=== PATIENT | male | born 1955 | race American Indian/Alaskan Native ===

== ENCOUNTER 2020-12-28 11:59 | Emergency (ER) | payer SELFPAY ==
--- NOTE | 2020-12-28 14:21 | Emergency Department Report ---
ED Male HPI - General Chief complaint: Abdominal Pain Stated complaint: UNABLE TO URINATE Time Seen by Provider: 12/28/20 13:49 Source: patient Mode of arrival: Ambulatory Limitations: No Limitations - History of Present Illness Initial comments: 65-year-old male, history of prostate enlargement, presents to ED with urinary retention. Patient states over the last couple days he been having some difficulty with urination. States he ran out of his Flomax. On yesterday, he was seen at an urgent care and given a prescription for Flomax and Cipro, treating a UTI. Today, patient was unable to urinate at all and came into the ER. He reports suprapubic discomfort. Patient states this is his third episode of having urinary retention which required a Finn catheter placement. Patient reports the other 2 times have occurred while he was out of town. Patient states he does a lot of traveling for work. Patient does report that he has a urologist in the [place] area that he has not seen recently. Patient is unable to remember the name of the urologist. MD Complaint: other -: This morning Radiation: none Severity: severe Quality: aching Consistency: constant Improves with: urination Worsens with: none urinary retention. denies: dysuria, fever, nausea/vomiting - Related Data Allergies Allergy/AdvReac Type Severity Reaction Status Date / Time No Known Allergies Allergy Verified 12/28/20 12:25 ED Review of Systems ROS: Stated complaint: UNABLE TO URINATE Other details as noted in HPI Comment: All other systems reviewed and negative Constitutional: denies: fever Gastrointestinal: abdominal pain. denies: nausea, vomiting Genitourinary: as per HPI ED Past Medical Hx - Past Medical History Previous Medical History?: Yes Additional medical history: BPH - Surgical History Past Surgical History?: Yes Additional Surgical History: prostate porcedure. left leg sx for break - Social History Smoking Status: Never Smoker Substance Use Type: Alcohol ED Physical Exam - General Limitations: No Limitations General appearance: alert, in no apparent distress - Head Head exam: Present: atraumatic, normocephalic - Eye Eye exam: Present: normal appearance, EOMI - ENT ENT exam: Present: mucous membranes moist - Neck Neck exam: Present: normal inspection - Respiratory Respiratory exam: Present: normal lung sounds bilaterally. Absent: respiratory distress - Cardiovascular Cardiovascular Exam: Present: normal rhythm, tachycardia - GI/Abdominal GI/Abdominal exam: Present: soft, tenderness (Suprapubic) - Extremities Exam Extremities exam: Present: normal inspection - Neurological Exam Neurological exam: Present: alert, oriented X3 - Psychiatric Psychiatric exam: Present: normal affect, normal mood - Skin Skin exam: Present: warm, dry, intact, normal color ED Course Vital Signs 12/28/20 12:25 Temperature 98.2 F Pulse Rate 118 H Respiratory 16 Rate Blood Pressure 159/108 O2 Sat by Pulse 97 Oximetry ED Medical Decision Making - Medical Decision Making UA shows UTI. Currently on Cipro x1 day. Patient advised to finish his course of antibiotics. Patient was also restarted on his Flomax on yesterday. No prescriptions needed at this time. Patient will be switched to a leg bag. Finn output of 1500 cc. Outpatient follow-up with urologist advised. Critical care attestation.: If time is entered above; I have spent that time in minutes in the direct care of this critically ill patient, excluding procedure time. ED Disposition Clinical Impression: Acute urinary retention, UTI (urinary tract infection) Disposition: TO HOME OR SELFCARE Is pt being admited?: No Condition: Stable Instructions: Acute Urinary Retention, Male, Urinary Tract Infection, Adult Referrals: PRIMARY CARE, [Primary Care Provider] - 3-5 Days YUE REARDON MD [Staff Physician] - 3-5 Days Time of Disposition: 15:15
[2020-12-28 15:01] LABS: Bilirubin,Urine NEG (Negative); Blood,Urine LG (Negative); Color,Urine Yellow (Yellow); Mucus,Urine FEW /HPF; Protein,Urine <15 mg/dL mg/dL (Negative); Urobilinogen,Urine < 2.0 mg/dL (<2.0)
[2020-12-28 16:11] VITALS: BP 149/94
== END 2020-12-28 16:11 | disposition home or self-care (01) ==
LOC: ED 11:59
DX: N39.0 Urinary tract infection, site not specified (principal); R33.9 Retention of urine, unspecified; Z98.890 Other specified postprocedural states
CPT/HCPCS: 81001; 87086